=== PATIENT | female | born 1995 | race Caucasian/White ===

== ENCOUNTER 2022-02-15 07:53 | Inpatient (IN) ==
[2022-02-15] MEDS ORDERED: OXYTOCIN 30 UNITS/500 ML BAG IV PRN ×3 (09:08→17:49)
--- NOTE | 2022-02-15 09:15 | History & Physical Report ---
Date of Service February 15, 2022 Assessment & Plan (1) Post-dates : Plan: Admit in labor anesthesia consult due to history of spinal fusion History of Present Illness Chief Complaint: onset of labor Primary Care Provider: Godfrey Laughlin, DO 26 F P0000 at 40.4 weeks in early labor. GBS is negative. Covid is negative. Allergies Allergy/AdvReac Type Severity Reaction Status Date / Time No Known Allergies Allergy Verified 01/14/22 14:56 Home Medications Medication Instructions Recorded Confirmed Type sertraline 50 mg tablet 50 mg PO DAILY #90 tab 01/14/22 02/15/22 Rx Pre-Juliet Multivitamins/Minerals 1 tab PO DAILY 02/15/22 02/15/22 History Patient History Medical History Depression Surgical History H/O spinal fusion Family History Grandmother (Maternal) Breast cancer Denies family history of Ovarian cancer Prostate cancer Myocardial infarction Lung cancer Colorectal cancer Social History Smoking Status: Former smoker Tobacco Type: Cigarettes Age Started Using Tobacco: 21; Age Quit Using Tobacco: 23; Cigarettes Per Day: 2 per day; Number of Years Since Quit: 2; Second Hand Exposure: No; Hx Alcohol Use: Yes Alcohol type: wine Alcohol Intake Frequency: 2-3 x/Week Hx Substance Use: No Preferred Language: Pashto Communication Ability: Effective Visual Impairment: No Limitations Hearing Ability: Normal Link Assembler Required: No Beliefs That Will Affect Care: None marital status: Single Current Living Situation: Significant Other current occupational status: employed Other Information That Helps Us Care for You: No Feels Safe at Home: Yes Safety Concerns: Feels Safe At This Time Childhood Exposure to Second-Hand Smoke: Yes caffeine: Yes Dental Care, Regularly: No Physical Activity Frequency: Daily 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
[2022-02-15 09:38] LABS: Hematocrit (blood only) 38.6 % (37-47); Hemoglobin 13.2 g/dL (12.0-16.0); Mean Corpuscular Hgb Conc 34.2 g/dL (32-36); Mean Corpuscular Volume 93.7 fL (80-100); Mean Platelet Volume 11.4 fL (7.4-10.4); Platelet Count 233 K/uL (130-400); RDW Coefficient of Variation 12.5 % (11.5-14.5); RDW Standard Deviation 42.1 fL (36.4-46.3); Red Blood Count 4.12 M/uL (4.2-5.4); White Blood Count 13.88 K/uL (4.8-10.8)
[2022-02-15] MEDS: LACTATED RINGER'S 1,000 ML IV PRN ×2 (09:40→13:18)
--- NOTE | 2022-02-15 10:33 | Obstetrical Progress Note ---
Date of Service February 15, 2022 Assessment & Plan Admission and Anticipated Discharge Date Admission Date: February 15, 2022 Subjective Patient is seen and examined She is getting more painful and asking for epidural Anesthesia was consulted for h/o spinal fusion for scoliosis. VSS Afebrile FHR categ I VE; 6/ 80%/ -2, bulging bag Continue to monitor closely Epidural for pain Results & Data ([facility]) Vital Signs (Past 12 Hours) Vital Signs Temp Pulse Resp BP 02/15/22 08:01 36.9 C 20 02/15/22 07:58 81 127/79
[2022-02-15] MEDS ORDERED: ePHEDrine sulfate 50 MG/ML AMP ONE (10:42)
[2022-02-15] MEDS ORDERED: fentaNYL citrate 100 MCG/2 ML VIAL ONE (10:43)
[2022-02-15] MEDS ORDERED: fentaNYL 2MCG/ML ROPIVACAINE 1.25MG/ML 100 ML BAG EPI ONE (10:43)
[2022-02-15] MEDS ORDERED: BUPIVACAINE 0.25% 30 ML VIAL ONE (10:43)
[2022-02-15] MEDS ORDERED: SODIUM CHLORIDE 0.9% INJ 10 ML VIAL ONE (10:43)
[2022-02-15] MEDS ORDERED: diphenhydrAMINE 50 MG/ML VIAL IV PRN (11:00)
[2022-02-15] MEDS ORDERED: NALOXONE HCL 1 MG in SODIUM CHLORIDE 0.9% 1000ML 1,000 ML IV PRN (11:00)
[2022-02-15] MEDS ORDERED: fentaNYL 2MCG/ML ROPIVACAINE 1.25MG/ML 100 ML BAG EPI PRN (11:00)
[2022-02-15] MEDS ORDERED: NALOXONE HCL 0.4 MG/1 ML VIAL/CARP IV PRN (11:00)
[2022-02-15] MEDS ORDERED: ONDANSETRON INJ 2 MG/ML 2 ML VIAL IV PRN (11:00)
[2022-02-15] MEDS ORDERED: NALBUPHINE HCL INJ 10 MG/ML AMP IV PRN (11:00)
[2022-02-15] MEDS ORDERED: ePHEDrine sulfate 50 MG/ML AMP IV PRN (11:00)
--- NOTE | 2022-02-15 11:00 | Anesthesiology Consultation ---
Date of Service February 15, 2022 Assessment & Plan ASA ASA3 Proposed Anesthesia Anesthesia Type: Labor Epidural Risk / Benefits Reviewed With: PT / POA / Parent / Guardian, Accepts Plan and Informed Consent Obtained Additional Comments: pt has a spinal fusion down to l2 for scoliosis. discussed risk benefits with the patient and possibility that epidural may not work 2/2 scar tissue. Pt may be at increased risk for wet tap. pt wishes to proceed History Height/Weight Height: 5 ft 7 in Weight: 100.698 kg Allergies Allergy/AdvReac Type Severity Reaction Status Date / Time No Known Allergies Allergy Verified 01/14/22 14:56 Medications Home Medications Medication Instructions Recorded Confirmed Last Taken sertraline 50 mg tablet 50 mg PO DAILY #90 tab 01/14/22 02/15/22 1 Day Ago ~02/14/22 1 tab Pre-Juliet Multivitamins/Minerals 1 tab PO DAILY 02/15/22 02/15/22 1 Day Ago ~02/14/22 Past Medical History Medical History Depression Exercise / Class Metabolic Activity II 4-5 Yardwork/Stairs/Walk up hill Past Family History Family History Grandmother (Maternal) Breast cancer Denies family history of Ovarian cancer Prostate cancer Myocardial infarction Lung cancer Colorectal cancer Past Surgical History Surgical History H/O spinal fusion Past Anesthesia History No Hx of Anesthesia Complications and No Family Hx of Anesthesia Complications History of PONV No Hx of PONV and No Hx of Motion Sickness Social History Smoking Status: Former smoker Smoking cigarettes per day: 2 per day Hx Alcohol Use: Yes Alcohol type: wine Hx Substance Use: No substance use type: does not use Review of Systems denies fever/cough/ colds/ chest pain/ SOB/ ANUSHA denies ANUSHA Physical Exam Vital Signs Last Vital Signs Temp 36.9 C 02/15/22 08:01 Pulse 81 02/15/22 10:32 Resp 20 02/15/22 08:01 BP 124/85 02/15/22 10:32 ENMT Mouth: no TMJ abnormality and no dentition abnormality Thyromental Distance: > or= 3.5 Finger Breadths Mallampati Class: II Neck neck extension not limited Respiratory normal respiratory effort; no respiratory distress Auscultation: lungs clear to auscultation bilaterally Cardiovascular Rate/Rhythm: regular rate and regular rhythm Neurologic moves all extremities Psychiatric Orientation: alert and oriented x 3 Testing Laboratory Results 02/15/22 09:23
--- NOTE | 2022-02-15 14:44 | Obstetrical Progress Note ---
Date of Service February 15, 2022 Assessment & Plan Admission and Anticipated Discharge Date Admission Date: February 15, 2022 Subjective Patient is reevaluated. She received epidural and comfortable now. Heart rate category 1, toco with contractions every 4 to 6 minutes, Vaginal exam unchanged, 6, 8%, -2 with bulging bag, AROM and clear fluid was obtained, leaking urine as well. Plan to insert Tello catheter and augment contractions with oxytocin Continue to monitor closely. Results & Data ([facility]) Vital Signs (Past 12 Hours) Vital Signs Temp Pulse Resp BP Pulse Ox 02/15/22 14:36 72 96 02/15/22 14:32 72 114/71 02/15/22 14:31 80 96 02/15/22 14:29 20 02/15/22 14:26 75 96 02/15/22 14:21 74 96 02/15/22 14:17 75 115/71 02/15/22 14:16 73 96 02/15/22 14:11 73 96 02/15/22 14:06 75 96 02/15/22 14:02 76 112/68 02/15/22 14:01 76 97 02/15/22 14:00 20 02/15/22 13:56 74 96 02/15/22 13:51 78 97 02/15/22 13:47 74 115/69 02/15/22 13:46 75 96 02/15/22 13:41 36.6 C 75 20 96 02/15/22 13:36 74 95 02/15/22 13:31 66 97/55 L 95 02/15/22 13:30 20 02/15/22 13:29 65 86/54 L 02/15/22 13:26 71 96 02/15/22 13:24 64 94/52 L 02/15/22 13:21 68 95 02/15/22 13:19 72 90/53 L 02/15/22 13:16 72 95 02/15/22 13:15 68 95/54 L 02/15/22 13:11 74 97 02/15/22 13:06 69 97 02/15/22 13:05 66 98/57 L 02/15/22 13:01 68 96 02/15/22 13:00 68 20 106/56 L 02/15/22 12:56 67 96 02/15/22 12:54 73 102/57 L 02/15/22 12:51 69 96 02/15/22 12:50 66 102/57 L 02/15/22 12:46 69 110/51 L 96 02/15/22 12:41 86 97 02/15/22 12:40 77 124/65 02/15/22 12:36 78 97 02/15/22 12:34 75 126/65 90 02/15/22 12:31 85 113/65 92 02/15/22 12:29 83 91 02/15/22 12:26 82 123/67 92 02/15/22 12:24 79 91 02/15/22 12:21 84 92 02/15/22 12:19 78 125/67 02/15/22 12:16 79 142/77 H 92 02/15/22 12:11 75 92 02/15/22 12:09 76 114/72 02/15/22 12:06 77 94 02/15/22 12:05 75 116/66 02/15/22 12:01 78 94 02/15/22 12:00 20 02/15/22 11:59 80 129/77 02/15/22 11:56 81 93 02/15/22 11:54 87 135/71 02/15/22 11:52 81 133/73 02/15/22 11:51 80 96 02/15/22 11:50 73 129/85 02/15/22 11:48 86 133/77 02/15/22 11:46 83 98 02/15/22 11:45 78 130/69 02/15/22 11:44 84 124/68 02/15/22 11:42 85 136/70 02/15/22 11:41 85 100 02/15/22 11:40 81 131/62 02/15/22 11:38 78 136/64 02/15/22 11:36 79 143/65 H 100 02/15/22 11:34 83 131/61 02/15/22 11:32 81 137/63 02/15/22 11:31 84 100 02/15/22 11:30 87 126/68 02/15/22 11:28 90 129/61 02/15/22 11:26 82 100 02/15/22 11:25 83 133/63 02/15/22 11:24 86 131/63 02/15/22 11:22 85 139/87 02/15/22 11:21 85 100 02/15/22 11:20 82 164/70 H 02/15/22 11:18 88 151/70 H 02/15/22 11:16 86 147/67 H 97 02/15/22 11:14 86 149/75 H 02/15/22 11:12 99 H 155/94 H 02/15/22 11:11 87 100 02/15/22 11:10 80 159/81 H 02/15/22 11:06 88 94 02/15/22 11:02 76 120/71 02/15/22 11:01 87 100 02/15/22 10:32 81 124/85 02/15/22 08:01 36.9 C 20 02/15/22 07:58 81 127/79
[2022-02-15] MEDS ORDERED: MINERAL OIL 30 ML UDC ONE (16:57)
[2022-02-15] MEDS ORDERED: METHYLERGONOVINE MALEATE 0.2 MG/ML AMP ONE (17:33)
[2022-02-15] MEDS ORDERED: BENZOCAINE 20% AER SPR 82.5 GM CAN EXT PRN (17:49)
[2022-02-15] MEDS ORDERED: METHYLERGONOVINE MALEATE 0.2 MG/ML AMP IM ONE (17:49)
[2022-02-15] MEDS ORDERED: HYDROCORTISONE ACETATE 25 MG SUPP PR PRN (17:49)
[2022-02-15] MEDS ORDERED: bisacodyL 10 MG SUPP PR PRN (17:49)
[2022-02-15] MEDS ORDERED: MEASLES, MUMPS & RUBELLA VIRUS VIAL SQ ONE (17:49)
[2022-02-15] MEDS ORDERED: ACETAMINOPHEN 325 MG TAB PO PRN (17:49)
[2022-02-15] MEDS ORDERED: DIPHTHERIA/TETANUS/PERTUSSIS 0.5 ML SYR/VIAL IM ONE (17:49)
[2022-02-15] MEDS ORDERED: ceFAZolin 2000MG 2,000 MG/15 ML SYR IV STA (17:56)
--- NOTE | 2022-02-15 17:56 | Delivery Summary ---
Vaginal Delivery Summary Date of Service February 15, 2022 Vaginal Delivery Summary Patient was found to be fully dilated and desired to push she pushed through 3 contractions and delivered the head without difficulty. The shoulders came right after the had and there was an cord around the neck x1 which was reduced while delivering the baby. Baby was handed to the mother by mouth and nose were suctioned cord was clamped times and cut. The baby was taken off by the pediatric team. The cord blood was obtained. Then the vagina and perineum were checked for lacerations. There were first-degree periurethral lacerations at fusion of anterior labia and urethra. And there was a small perineal laceration which was close to perianal area/sphincter. Rectal exam was done noted to have some sphincter tone but unable to tell its strength due to patient having good epidural and unable to u se her perineal sphincter muscles. Allis clamps were used to grasp the muscles around the external sphincter and perineal body. Those were reapproximated with [id number] stitches x3. The rectal exam was repeated and no sutures were felt and good sphincter tone with integrity was noted. The gloves were changed and the rest of the laceration was repaired with another 2-0 Vicryl starting from vaginal mucosa, bringing the bulbocavernosus muscle together and skin in a subcuticular fashion. Excellent hemostasis achieved. Then a Tello catheter was placed into the urethra and periurethral lacerations were repaired with 3-0 Vicryl on SH needle. Multiple [id number] stitches were placed keeping the integrity of ureteral orifice and excellent hemostasis was achieved. And the placenta was found to be in vagina, delivered spontaneously as intact and complete. Uterus was explored and found to be empty. The lower segment was cleared of all clots and debris's. Fundus was firm and EBL was 300 mL. Patient was given IV oxytocin and IM Methergine. The mom and baby tolerated procedure well. Sponge needle instrument count was correct x2. Baby was a viable female infant Apgars 7/8 and weight is pending. No complications happened and I was present during whole procedure.
--- NOTE | 2022-02-15 18:12 | Anesthesiology Progress Note ---
Date of Service February 15, 2022 Anesthesia Post Procedure Vital Signs Vital Signs: Temp Pulse Resp BP Pulse Ox 02/15/22 18:02 75 117/70 02/15/22 17:47 90 112/63 02/15/22 17:39 85 97 02/15/22 17:34 83 96 02/15/22 17:32 74 113/62 02/15/22 17:29 78 96 02/15/22 17:24 86 96 02/15/22 17:19 78 96 02/15/22 17:17 85 119/64 02/15/22 17:14 87 96 02/15/22 17:09 100 H 94 02/15/22 17:04 83 97 02/15/22 17:02 85 130/81 02/15/22 17:00 20 02/15/22 16:59 92 H 98 02/15/22 16:54 99 H 98 02/15/22 16:49 84 99 02/15/22 16:48 77 124/76 02/15/22 16:44 76 100 02/15/22 16:39 90 99 02/15/22 16:34 78 99 02/15/22 16:32 78 121/75 02/15/22 16:30 20 02/15/22 16:29 75 98 02/15/22 16:24 80 99 02/15/22 16:19 78 100 02/15/22 16:18 75 119/75 02/15/22 16:14 75 99 02/15/22 16:09 73 99 02/15/22 16:04 81 99 02/15/22 16:03 77 118/70 02/15/22 16:00 18 02/15/22 15:59 80 98 02/15/22 15:54 74 98 02/15/22 15:53 36.7 C 02/15/22 15:49 69 98 02/15/22 15:47 75 93/59 L 02/15/22 15:44 70 99 02/15/22 15:39 69 100 02/15/22 15:35 68 87/59 L 02/15/22 15:34 70 98 02/15/22 15:30 18 02/15/22 15:29 66 97 02/15/22 15:24 66 97 02/15/22 15:19 68 95 02/15/22 15:18 70 92/54 L 02/15/22 15:14 72 95 02/15/22 15:09 70 97 02/15/22 15:04 74 87/51 L 97 02/15/22 15:00 18 02/15/22 14:59 67 97 02/15/22 14:54 70 97 02/15/22 14:48 73 91/53 L 02/15/22 14:36 72 96 02/15/22 14:32 72 114/71 02/15/22 14:31 80 96 02/15/22 14:29 20 02/15/22 14:26 75 96 02/15/22 14:21 74 96 02/15/22 14:17 75 115/71 02/15/22 14:16 73 96 02/15/22 14:11 73 96 02/15/22 14:06 75 96 02/15/22 14:02 76 112/68 02/15/22 14:01 76 97 02/15/22 14:00 20 02/15/22 13:56 74 96 02/15/22 13:51 78 97 02/15/22 13:47 74 115/69 02/15/22 13:46 75 96 02/15/22 13:41 36.6 C 75 20 96 02/15/22 13:36 74 95 02/15/22 13:31 66 97/55 L 95 02/15/22 13:30 20 02/15/22 13:29 65 86/54 L 02/15/22 13:26 71 96 02/15/22 13:24 64 94/52 L 02/15/22 13:21 68 95 02/15/22 13:19 72 90/53 L 02/15/22 13:16 72 95 02/15/22 13:15 68 95/54 L 02/15/22 13:11 74 97 02/15/22 13:06 69 97 02/15/22 13:05 66 98/57 L 02/15/22 13:01 68 96 02/15/22 13:00 68 20 106/56 L 02/15/22 12:56 67 96 02/15/22 12:54 73 102/57 L 02/15/22 12:51 69 96 02/15/22 12:50 66 102/57 L 06/20/22 12:46 69 110/51 L 96 02/15/22 12:41 86 97 02/15/22 12:40 77 124/65 02/15/22 12:36 78 97 02/15/22 12:34 75 126/65 90 02/15/22 12:31 85 113/65 92 02/15/22 12:29 83 91 02/15/22 12:26 82 123/67 92 02/15/22 12:24 79 91 02/15/22 12:21 84 92 02/15/22 12:19 78 125/67 02/15/22 12:16 79 142/77 H 92 02/15/22 12:11 75 92 02/15/22 12:09 76 114/72 02/15/22 12:06 77 94 02/15/22 12:05 75 116/66 02/15/22 12:01 78 94 02/15/22 12:00 20 02/15/22 11:59 80 129/77 02/15/22 11:56 81 93 02/15/22 11:54 87 135/71 02/15/22 11:52 81 133/73 02/15/22 11:51 80 96 02/15/22 11:50 73 129/85 02/15/22 11:48 86 133/77 02/15/22 11:46 83 98 02/15/22 11:45 78 130/69 02/15/22 11:44 84 124/68 02/15/22 11:42 85 136/70 02/15/22 11:41 85 100 02/15/22 11:40 81 131/62 02/15/22 11:38 78 136/64 02/15/22 11:36 79 143/65 H 100 02/15/22 11:34 83 131/61 02/15/22 11:32 81 137/63 02/15/22 11:31 84 100 02/15/22 11:30 87 126/68 02/15/22 11:28 90 129/61 02/15/22 11:26 82 100 02/15/22 11:25 83 133/63 02/15/22 11:24 86 131/63 02/15/22 11:22 85 139/87 02/15/22 11:21 85 100 02/15/22 11:20 82 164/70 H 02/15/22 11:18 88 151/70 H 02/15/22 11:16 86 147/67 H 97 02/15/22 11:14 86 149/75 H 02/15/22 11:12 99 H 155/94 H 02/15/22 11:11 87 100 02/15/22 11:10 80 159/81 H 02/15/22 11:06 88 94 02/15/22 11:02 76 120/71 02/15/22 11:01 87 100 02/15/22 10:32 81 124/85 02/15/22 08:01 36.9 C 20 02/15/22 07:58 81 127/79 Pain Intensity Bilateral Abdomen: Pain Intensity: 6 Transfer of Care Handoff Completed per policy Notes Mental Status: alert / awake / arousable and participated in evaluation Patient Amnestic to Procedure: Yes Nausea / Vomiting: adequately controlled Pain: adequately controlled Airway Patency, RR, SpO2: stable & adequate BP & HR: stable & adequate Hydration State: stable & adequate Anesthetic Complications: no major complications apparent and Pt Satisfied with anesthetic care
[2022-02-15] MEDS: METHYLERGONOVINE MALEATE 0.2 MG TAB PO SCH (20:37)
[2022-02-15] MEDS: DOCUSATE SODIUM 100 MG CAP PO SCH (20:37)
[2022-02-15] MEDS: IBUPROFEN 600 MG TAB PO PRN (20:37)
[2022-02-16] MEDS: IBUPROFEN 600 MG TAB PO PRN ×3 (04:49→19:40)
[2022-02-16 06:32] LABS: Hematocrit (blood only) 33.3 % (37-47); Hemoglobin 11.4 g/dL (12.0-16.0); Mean Corpuscular Hemoglobin 32.1 pg (25-34); Mean Corpuscular Hgb Conc 34.2 g/dL (32-36); Mean Corpuscular Volume 93.8 fL (80-100); Mean Platelet Volume 11.7 fL (7.4-10.4); Platelet Count 198 K/uL (130-400); RDW Coefficient of Variation 12.4 % (11.5-14.5); RDW Standard Deviation 42.1 fL (36.4-46.3); Red Blood Count 3.55 M/uL (4.2-5.4); White Blood Count 13.32 K/uL (4.8-10.8)
[2022-02-16] MEDS: METHYLERGONOVINE MALEATE 0.2 MG TAB PO SCH ×2 (07:47→14:00)
[2022-02-16] MEDS: PRENATAL VITAMIN 1 TAB PO SCH (07:47)
[2022-02-16] MEDS: FERROUS SULFATE 325 MG TAB PO SCH (07:47)
[2022-02-16] MEDS: oxyCODONE/ACETAMINOPHEN 5mg/325mg TAB PO PRN ×2 (07:47→16:19)
[2022-02-16] MEDS: DOCUSATE SODIUM 100 MG CAP PO SCH ×2 (07:47→19:41)
[2022-02-16] MEDS: SERTRALINE HCL 50 MG TABLET PO SCH (07:48)
--- NOTE | 2022-02-16 08:29 | Obstetrical Progress Note ---
Date of Service February 16, 2022 Subjective Ambulation: ambulating normally Voiding: no voiding problems Passing Gas:: No Diet Tolerance:: regular diet Lochia:: Small Feeding Type:: breast feeding Physical Exam Constitutional WD/WN, vitals as above minimal edema. neg Koffi's Results & Data ([facility]) Vital Signs (Past 12 Hours) Vital Signs Temp Pulse Resp BP Pulse Ox 02/16/22 04:00 36.7 C 72 16 101/66 98 02/15/22 23:20 36.9 C 74 16 126/79 95 02/15/22 20:30 37.2 C 94 H 16 126/81 98 Laboratory Results 02/15/22 02/15/22 02/16/22 09:23 09:48 06:05 WBC 13.88 H 13.32 H RBC 4.12 L 3.55 L Hgb 13.2 11.4 L Hct 38.6 33.3 L MCV 93.7 93.8 MCH 32.0 32.1 MCHC 34.2 34.2 RDW Std Deviation 42.1 42.1 RDW Coeff of Demetris 12.5 12.4 Plt Count 233 198 MPV 11.4 H 11.7 H SARS-CoV-2, RNA, NAAT NEGATIVE
[2022-02-16] MEDS ORDERED: bisacodyL 5 MG TABEC PO SCH (20:00)
[2022-02-17] MEDS: IBUPROFEN 600 MG TAB PO PRN (05:23)
[2022-02-17] MEDS: DOCUSATE SODIUM 100 MG CAP PO SCH (08:56)
[2022-02-17] MEDS: SERTRALINE HCL 50 MG TABLET PO SCH (08:56)
[2022-02-17] MEDS: FERROUS SULFATE 325 MG TAB PO SCH (08:57)
[2022-02-17] MEDS: PRENATAL VITAMIN 1 TAB PO SCH (08:57)
[2022-02-17 09:27] LABS: Hematocrit (blood only) 32.5 % (37-47)
--- NOTE | 2022-02-17 09:52 | Obstetrical Progress Note ---
Date of Service February 17, 2022 Assessment & Plan Admission and Anticipated Discharge Date Admission Date: February 15, 2022 Subjective Patient is seen and examined. She feels well, no complaints. Ambulating without dizziness Voiding without difficulty Tolerating regular diet with out N&V Bleeding is minimal No fever/ chills/ CP/ SOB/ N&V/ Leg pain Breast feeding without problems Vital Signs Temp Pulse Resp BP Pulse Ox 02/17/22 07:25 36.7 C 75 18 122/73 99 02/17/22 05:20 36.4 C L 73 16 108/70 Lab Results 02/15/22 02/15/22 02/16/22 Range/Units 09:23 09:48 06:05 WBC 13.88 H 13.32 H (4.8-10.8) K/uL RBC 4.12 L 3.55 L (4.2-5.4) M/uL Hgb 13.2 11.4 L (12.0-16.0) g/dL Hct 38.6 33.3 L (37-47) % MCV 93.7 93.8 (80-100) fL MCH 32.0 32.1 (25-34) pg MCHC 34.2 34.2 (32-36) g/dL RDW Std Deviation 42.1 42.1 (36.4-46.3) fL RDW Coeff of Demetris 12.5 12.4 (11.5-14.5) % Plt Count 233 198 (130-400) K/uL MPV 11.4 H 11.7 H (7.4-10.4) fL SARS-CoV-2, RNA, NAAT NEGATIVE (NEGATIVE) 02/17/22 Range/Units 08:25 WBC (4.8-10.8) K/uL RBC (4.2-5.4) M/uL Hgb 11.0 L (12.0-16.0) g/dL Hct 32.5 L (37-47) % MCV (80-100) fL MCH (25-34) pg MCHC (32-36) g/dL RDW Std Deviation (36.4-46.3) fL RDW Coeff of Demetris (11.5-14.5) % Plt Count (130-400) K/uL MPV (7.4-10.4) fL SARS-CoV-2, RNA, NAAT (NEGATIVE) PE: General: Alert, orientedx3, NAD Abd: soft, NT, fundus firm, below Umbilicus Perineum intact, Lochia rubra minimal Ext; NT, no edema AP: 26 yo s/p , ppd# 2 VSS Afebrile doing well Continue routine care All questions were answered D/C home , f/u in office Results & Data ([facility]) Vital Signs (Past 12 Hours) Vital Signs Temp Pulse Resp BP Pulse Ox 02/17/22 07:25 36.7 C 75 18 122/73 99 02/17/22 05:20 36.4 C L 73 16 108/70
--- NOTE | 2022-02-18 07:53 | Coding Query ---
CODING QUERY To promote full compliance with coding requirements relating to patient care, provider participation is requested in all cases of inspector tool uncertainty. Please assist us with the question(s) below: Coding Question(s): And there was a small perineal laceration which was close to perianal area/sphincter.Allis clamps were used to grasp the muscles around the external sphincter and perineal body. Those were reapproximated with [id number] stitches x3. Based on the above documentation , Please Further clarify the degree of perineal laceration ie A) First degree perineal laceration B) Second degree perineal laceration C) Third degree Perineal laceration D) Any other specified condition ( Please specify) Physician's Response(s): First degree periurethral laceration Partial third degree perineal laceration Thank you Cale Sapp Principal Diagnosis: "that condition established after study, to be chiefly responsible for occasioning the admission of the patient to the hospital for care." Co-Existing Principal Diagnosis: "when two or more diagnoses equally meet the criteria for principal diagnosis as determined by the circumstances of admission, diagnostic work up, and/or therapy provided, and the Alphabetic Index, Tabular List, or another coding guideline does not provide sequencing direction, any one of the diagnoses may be sequenced first." "When the physician has documented what appears to be a current diagnosis in the body of the record, but has not included the diagnosis in the final diagnostic statement, the physician should be asked whether the diagnosis should be added." (Source [facility] 2 QTR90. p3-4) JUDY
== END 2022-02-17 16:00 | disposition home or self-care (01) | DRG 806 ==
LOC: 4S1 07:53 → OPB 07:53 → 4S1 09:08 → 4E2 20:04